=== PATIENT | male | born 1965 | race Caucasian/White ===

== ENCOUNTER 2020-06-06 18:03 | Observation (INO) | payer OTHER ==
[2020-06-06] MEDS ORDERED: MORPHINE SULFATE 4 MG/ML SYRINGE IV STA (18:23)
[2020-06-06 18:38] LABS: Basophils % (A) 1 %; Eosinophils # (A) 0.1 k/uL (0-0.7); Eosinophils % (A) 2 %; HCT 41.3 % (39.0-53.0); HGB 12.5 gm/dL (13.0-17.5); Lymphocytes # (A) 1.4 k/uL (1.0-4.8); Lymphocytes % (A) 23 %; MCH 26.9 pg (25.0-35.0); MCHC 30.3 g/dL (31.0-37.0); MCV 88.8 fL (80.0-100.0); Monocytes # (A) 0.3 k/uL (0-1.0); Monocytes % (A) 4 %; Neutrophils # (A) 4.1 k/uL (1.3-7.7); Neutrophils % (A) 69 %; Platelet Count 117 k/uL (150-450); RBC 4.66 m/uL (4.30-5.90); RDW 14.1 % (11.5-15.5)
[2020-06-06 18:44] LABS: ALT 57 U/L (4-49); AST 33 U/L (17-59); African American GFR (CKD) >90 (>60 ml/min/1.73 sqM); Albumin 4.5 g/dL (3.5-5.0); Alkaline Phosphatase 71 U/L (38-126); Anion Gap 10 mmol/L; Blood Urea Nitrogen 21 mg/dL (9-20); Calcium 9.2 mg/dL (8.4-10.2); Carbon Dioxide 24 mmol/L (22-30); Chloride 104 mmol/L (98-107); Glucose 94 mg/dL (74-99); Lipase 52 U/L (23-300); Magnesium 1.9 mg/dL (1.6-2.3); Non-African American GFR(CKD) 89 (>60 ml/min/1.73 sqM); Potassium 4.5 mmol/L (3.5-5.1); Sodium 138 mmol/L (137-145); Total Bilirubin 0.7 mg/dL (0.2-1.3); Total Protein 7.1 g/dL (6.3-8.2)
--- NOTE | 2020-06-06 19:20 | CT ---
EXAMINATION TYPE: CT chest angio for PE contrast and with 3-D Reconstruction renderings DATE OF EXAM: 06/06/2020 COMPARISON: None HISTORY: Currently being treated for PE. Shortness of breath and chest pain. CT DLP: 274.5 mGycm. Automated exposure control for dose reduction was used. CONTRAST: CT Chest for pulmonary embolism performed with with IV Contrast, patient injected with 100 mL of Isovue 370. FINDINGS: Cardiac pacemaker noted. LUNGS: There are prominent emphysematous changes. No acute pulmonary findings. PLEURAL SPACES: Negative. MEDIASTINUM: There is satisfactory enhancement of the pulmonary artery and its branches, with no CT e vidence for pulmonary embolism. The aorta is unremarkable. Heart and pericardial spaces unremarkable. No mediastinal adenopathy. There is a right upper hilar 1 cm diameter lymph node noted, a nonspecifi c finding. OTHER: No additional significant abnormality is seen. IMPRESSION: 1. Negative for pulmonary embolism. 2. No definitive acute process. 3. Hyperinflation with prominent emphysema noted.
[2020-06-06 19:49] LABS: D-Dimer 0.36 mg/L FEU (<0.60); Partial Thromboplastin Time 24.7 sec (22.0-30.0); Prothrombin Time 10.6 sec (9.0-12.0)
[2020-06-06] MEDS ORDERED: NALOXONE 0.4 MG/ML 1 ML VIAL IV PRN (19:58)
--- NOTE | 2020-06-06 19:58 | ED ---
Chest Pain HPI - General Chief Complaint: Chest Pain Stated Complaint: Chest pain Time Seen by Provider: 06/06/20 18:04 Source: EMS Mode of arrival: EMS Limitations: no limitations - History of Present Illness Initial Comments: Patient is a 55-year-old male past medical history of PE, A. fib, pacemaker placement who presents to the emergency department with reported chest pain since 12 pm. He is being transferred from [place]. States he's been there for 2 days for alcohol use. Patient had sudden onset of chest pain tonight. States it feels similar to when he was diagnosed with a PE. He is currently on anticoagulation and denies any missed doses. Reports to shortness of breath. No fevers, chills or cough. Refused nitro in route as he does not like the way it makes him feel. Denies history of coronary disease. Denies hemoptysis. No abdominal pain. No ripping or tearing sensation to his back. No upper extremity numbness or tingling. No other alleviating, precipitating or modifying factors - Related Data Home Medications Medication Instructions Recorded Confirmed Acetaminophen [Tylenol 8 Hour] 650 mg PO Q4H PRN 06/06/20 06/06/20 Aspirin EC [Ecotrin Low Dose] 81 mg PO DAILY@0600 06/06/20 06/06/20 Calcium/Magnesium/Zinc 2 tab PO TID PRN 06/06/20 06/06/20 [Lnuetnm-Edexydutq-Iiiw Tablet] Chlorpheniramine Maleate 4 mg PO Q4H PRN 06/06/20 06/06/20 [Chlor-Trimeton] Ibuprofen [Motrin] 600 mg PO Q12H PRN 06/06/20 06/06/20 LORazepam [Ativan] 1 - 2 mg PO DIRECTED 06/06/20 06/06/20 Metoprolol Tartrate [Lopressor] 12.5 mg PO BID@0600,1730 06/06/20 06/06/20 Multivitamins, Thera [Multivitamin 1 tab PO DAILY@0600 06/06/20 06/06/20 (formulary)] QUEtiapine FUMARATE [SEROquel] 300 mg PO HS@2200 06/06/20 06/06/20 Thiamine HCl [Vitamin B-1] 100 mg PO DAILY@0600 06/06/20 06/06/20 Tiotropium 2.5 Mcg/Puff [Spiriva 2 puff INHALATION RT-BID@0600,1730 06/06/20 Respimat 2.5 Mcg] Trimethobenzamide [Tigan] 300 mg PO Q6H PRN 06/06/20 06/06/20 Venlafaxine HCl [Effexor XR] 150 mg PO DAILY@0600 06/06/20 06/06/20 clonazePAM [KlonoPIN] 1 mg PO DIRECTED 06/06/20 06/06/20 ondansetron HCL [Zofran] 8 mg PO Q6H PRN 06/06/20 06/06/20 traZODone HCL 50 - 150 mg PO DIRECTED PRN 06/06/20 06/06/20 Previous Rx's Medication Instructions Recorded Apixaban [Eliquis] 5 mg PO BID #60 tab 06/07/20 Omeprazole [PriLOSEC] 40 mg PO AC-BRKFST #14 capsule. 06/07/20 lisinopriL [Zestril] 5 mg PO DAILY #90 tab 06/07/20 Allergies Allergy/AdvReac Type Severity Reaction Status Date / Time No Known Allergies Allergy Verified 06/06/20 20:02 Review of Systems ROS Statement: Those systems with pertinent positive or pertinent negative responses have been documented in the HPI. ROS Other: All systems not noted in ROS Statement are negative. EKG Findings - EKG Comments: EKG Findings:: EKG demonstrates atrial sensed ventricularly paced rhythm. Rate of approximately 111. NE interval 128. QRS 118. QTC 492. Some J-point elevation in V4 and V5. Inverted T-wave in aVL. Past Medical History Additional Past Medical History / Comment(s): Pacemaker August 2017 History of Any Multi-Drug Resistant Organisms: None Reported Past Surgical History: No Surgical Hx Reported Past Psychological History: No Psychological Hx Reported Smoking Status: Current every day smoker Past Alcohol Use History: Abuse, Daily General Exam Limitations: no limitations General appearance: alert, in no apparent distress Head exam: Present: atraumatic, normocephalic, normal inspection Eye exam: Present: normal appearance, PERRL, EOMI. Absent: scleral icterus, conjunctival injection, periorbital swelling ENT exam: Present: normal exam, mucous membranes moist Neck exam: Present: normal inspection. Absent: tenderness, meningismus, lymphad enopathy Respiratory exam: Present: normal lung sounds bilaterally. Absent: respiratory distress, wheezes, rales, rhonchi, stridor Cardiovascular Exam: Present: regular rate, normal rhythm, normal heart sounds. Absent: systolic murmur, diastolic murmur, rubs, gallop, clicks GI/Abdominal exam: Present: soft, normal bowel sounds. Absent: distended, tenderness, guarding, rebound, rigid Extremities exam: Present: normal inspection, full ROM, normal capillary refill. Absent: tenderness, pedal edema, joint swelling, calf tenderness Back exam: Present: normal inspection Neurological exam: Present: alert, oriented X3, CN II-XII intact Psychiatric exam: Present: normal affect, normal mood Skin exam: Present: warm, dry, intact, normal color. Absent: rash Course Vital Signs 06/06/20 06/06/20 18:06 18:44 Pulse Rate 108 H 120 H Respiratory 16 16 Rate Blood Pressure 138/100 140/90 O2 Sat by Pulse 98 95 Oximetry - Reevaluation(s) Reevaluation #1: Spoke with Dr. Daley re: EKG 06/06/20 20:50 Chest Pain MDM - MDM Upon arrival patient is placed in room 5. A thorough history and physical exam is performed. 12-lead EKG is performed which does demonstrate a ventricularly paced rhythm. Patient does have some J-point elevation in V4 and V5. No old EKG to compare to. He is given 4 mg of morphine and laboratory studies were conducted. Laboratory studies are reviewed and the troponin is negative. D- dimer 0.36. Covid not detected. CT of the chest is performed because of his history of PE which does not demonstrate pulmonary embolus and. Did recommend hospitalization for which the patient did agree to. Spoke with Dr. Simeon who agreed to admit the patient. Patient remained in stable condition awaiting a bed Disposition Clinical Impression: Chest pain, Pacemaker, Hx pulmonary embolism Disposition: ADMITTED IP TO THIS HOSP Condition: Serious Is patient prescribed a controlled substance at d/c from ED?: No Decision to Admit Reason: Admit from EC Decision Date: 06/06/20 Decision Time: 19:58
[2020-06-06] MEDS ORDERED: ASPIRIN 325 MG TAB PO STA (20:07)
[2020-06-06] MEDS ORDERED: TRIMETHOBENZAMIDE 300 MG CAP PO PRN (20:45)
[2020-06-06] MEDS ORDERED: LORazepam 2 MG/ML INJ IV PRN ×3 (20:47)
[2020-06-06] MEDS ORDERED: THIAMINE 100 MG/ML 2 ML VIAL IM STA (20:47)
[2020-06-06] MEDS: THIAMINE 100 MG TAB PO SCH (21:15)
[2020-06-06] MEDS ORDERED: QUEtiapine 100 MG TAB PO SCH (22:00)
[2020-06-06] MEDS: MORPHINE SULFATE 4 MG/ML SYRINGE IV PRN (22:13)
[2020-06-07] MEDS: MORPHINE SULFATE 4 MG/ML SYRINGE IV PRN (02:26)
[2020-06-07] MEDS ORDERED: TIOTROPIUM 2.5 MCG INHALER INHALATION SCH (06:00)
[2020-06-07] MEDS ORDERED: THIAMINE 100 MG TAB PO SCH (06:00)
[2020-06-07] MEDS ORDERED: VENLAFAXINE HCL ER 75 MG CAP PO SCH (06:00)
[2020-06-07] MEDS ORDERED: APIXABAN 5 MG TAB PO SCH (06:00)
[2020-06-07] MEDS ORDERED: ASPIRIN 81 MG PO SCH (06:00)
[2020-06-07] MEDS ORDERED: METOPROLOL TARTRATE 12.5 MG TAB PO SCH (06:00)
[2020-06-07 07:49] VITALS: BP 115/71; PULSE 84; RESP 18; TEMP 97.6
[2020-06-07] MEDS ORDERED: NICOTINE 14MG/24HR PATCH TRANSDERM SCH (09:00)
--- NOTE | 2020-06-07 10:29 | P.HPIM ---
History of Present Illness Patient is a 55-year-old male came in with complaints of chest pressure is sensation moderate to severe in nature. Patient pain is constant across the chest nonradiating, no associated shortness of breath lightheadedness or diaphoresis associated with the pain patient the is currently on anticoagulation with Eliquis for pulmonary embolism which was diagnosed about 2 weeks ago and patient told me that he only received a course only for few days and he ran out of the medication. Patient denied any fever chills nausea vomiting. Troponins were negative patient was evaluated by cardiology after obtaining an echocardiogram if echo doesn't show any significant wall motion abnormalities patient probably will be discharged today. Patient had a CT of the chest which showed emphysema without any PE or any pneumonia. Patient chest pain may be musculoskeletal and patient is already on Motrin which will be continued also given him prescription for Prilosec empirically for 14 days. EKG showing by IV pacer rhythm Review of Systems REVIEW OF SYSTEMS: CONSTITUTIONAL: No fever, no malaise, no fatigue. HEENT: No recent visual problems or hearing problems. Denied any sore throat. CARDIOVASCULAR: orthopnea, PND, no palpitations, no syncope. PULMONARY: No shortness of breath, no cough, no hemoptysis. GASTROINTESTINAL: No diarrhea, no nausea, no vomiting, no abdominal pain. NEUROLOGICAL: No headaches, no weakness, no numbness. HEMATOLOGICAL: Denies any bleeding or petechiae. GENITOURINARY: Denies any burning micturition, frequency, or urgency. MUSCULOSKELETAL/RHEUMATOLOGICAL: Denies any joint pain, swelling, or any muscle pain. ENDOCRINE: Denies any polyuria or polydipsia. The rest of the 14-point review of systems is negative. Past Medical History Additional Past Medical History / Comment(s): Pacemaker August 2017 History of Any Multi-Drug Resistant Organisms: None Reported Past Surgical History: No Surgical Hx Reported Past Psychological History: No Psychological Hx Reported Smoking Status: Current every day smoker Past Alcohol Use History: Abuse, Daily Medications and Allergies Home Medications Medication Instructions Recorded Confirmed Type Acetaminophen [Tylenol 8 Hour] 650 mg PO Q4H PRN 06/06/20 06/06/20 History Apixaban [Eliquis] 10 mg PO BID@0600,1730 06/06/20 06/06/20 History Aspirin EC [Ecotrin Low Dose] 81 mg PO DAILY@0600 06/06/20 06/06/20 History Calcium/Magnesium/Zinc 2 tab PO TID PRN 06/06/20 06/06/20 History [Obxgpke-Ozktmwqvs-Dlza Tablet] Chlorpheniramine Maleate 4 mg PO Q4H PRN 06/06/20 06/06/20 History [Chlor-Trimeton] Ibuprofen [Motrin] 600 mg PO Q12H PRN 06/06/20 06/06/20 History LORazepam [Ativan] 1 - 2 mg PO DIRECTED 06/06/20 06/06/20 History Metoprolol Tartrate [Lopressor] 12.5 mg PO BID@0600,1730 06/06/20 06/06/20 History Multivitamins, Thera [Multivitamin 1 tab PO DAILY@0600 06/06/20 06/06/20 History (formulary)] QUEtiapine FUMARATE [SEROquel] 300 mg PO HS@2200 06/06/20 06/06/20 History Thiamine HCl [Vitamin B-1] 100 mg PO DAILY@0600 06/06/20 06/06/20 History Tiotropium 2.5 Mcg/Puff [Spiriva 2 puff INHALATION RT-BID@0600,1730 06/06/20 06/06/20 History Respimat 2.5 Mcg] Trimethobenzamide [Tigan] 300 mg PO Q6H PRN 06/06/20 06/06/20 History Venlafaxine HCl [Effexor XR] 150 mg PO DAILY@0600 06/06/20 06/06/20 History clonazePAM [KlonoPIN] 1 mg PO DIRECTED 06/06/20 06/06/20 History ondansetron HCL [Zofran] 8 mg PO Q6H PRN 06/06/20 06/06/20 History traZODone HCL [TraZODone HCl] 50 - 150 mg PO DIRECTED PRN 06/06/20 06/06/20 History Allergies Allergy/AdvReac Type Severity Reaction Status Date / Time No Known Allergies Allergy Verified 06/06/20 20:02 Physical Exam Vitals: Vital Signs Temp Pulse Pulse Pulse Resp BP BP 06/07/20 07:00 97.6 F 84 18 115/71 06/07/20 02:00 97.5 F L 93 16 02/18/21 20:59 97.6 F 91 20 06/06/20 18:44 120 H 16 140/90 06/06/20 18:06 108 H 16 138/100 BP Pulse Ox 06/07/20 07:00 94 L 06/07/20 02:00 123/79 93 L 06/06/20 20:59 139/83 95 06/06/20 18:44 95 06/06/20 18:06 98 Intake and Output 06/06/20 06/07/20 06/07/20 22:59 06:59 14:59 Other: Voiding Method Toilet Toilet # Voids 1 2 Weight 77.111 kg PHYSICAL EXAMINATION: GENERAL: The patient is alert and oriented x3, not in any acute distress. Well developed, well nourished. HEENT: Pupils are round and equally reacting to light. EOMI. No scleral icterus. No conjunctival pallor. Normocephalic, atraumatic. No pharyngeal erythema. No thyromegaly. CARDIOVASCULAR: S1 and S2 present. No murmurs, rubs, or gallops. PULMONARY: Chest is clear to auscultation, no wheezing or crackles. ABDOMEN: Soft, nontender, nondistended, normoactive bowel sounds. No palpable organomegaly. MUSCULOSKELETAL: No joint swelling or deformity. EXTREMITIES: No cyanosis, clubbing, or pedal edema. NEUROLOGICAL: Gross neurological examination did not reveal any focal deficits. SKIN: No rashes. Results CBC & Chem 7: 06/06/20 18:27 06/06/20 18:27 Labs: Abnormal Lab Results - Last 24 Hours (Table) 06/06/20 06/06/20 Range/Units 18:27 18:27 Hgb 12.5 L (13.0-17.5) gm/dL MCHC 30.3 L (31.0-37.0) g/dL Plt Count 117 L (150-450) k/uL BUN 21 H (9-20) mg/dL ALT 57 H (4-49) U/L Thrombosis Risk Factor Assmnt - Choose All That Apply Each Factor Represents 1 point: Age 41-60 years Each Risk Factor Represents 3 Points: History of DVT/PE Thrombosis Risk Factor Assessment Total Risk Factor Score: 4 Thrombosis Risk Factor Assessment Level: Moderate Risk Assessment and Plan Plan: -Chest pain etiology is not clear. Ruled out acute cord syndromes echocardiac exam is being obtained for further management as per cardiology. Cleared by cardiology patient will be discharged will give him 14 days of empiric Proton inhibitor although patient chest pain doesn't appear to be gastroesophageal reflux disease or peptic ulcer disease can be musculoskeletal or which patient is already on Motrin. Ruled out new PE. Patient had a recent pulmonary embolism patient will be refilled with the prescription for Eliquis -Alcohol abuse history: She and the last drink was 5 days ago are do not expect any withdrawals patient also has minimal tremor at this time -Nicotine abuse history patient states he quit smoking since his admission to [facility] [facility] -Recent pulmonary embolism Possible COPD without any acute exacerbation -Depression She'll be discharged today. Cleared by cardiology
[2020-06-07] MEDS: THIAMINE 100 MG TAB PO SCH (10:32)
--- NOTE | 2020-06-07 11:37 | P.CRDCN ---
History of Present Illness History of present illness: HISTORY OF PRESENTING ILLNESS This is a pleasant 55-year-old male past medical history significant for nonischemic cardiomyopathy status post AICD ([employer]), hypertension, recent diagnosis of PE, chronic nicotine dependence and daily heavy alcohol intake. He does not follow regularly with a sleeve setter lockstitch. He states his defibrillator was placed by Dr. Campos at [facility] in 2018 however he does not follow regularly or have his device interrogated. We have been asked to see in consultation for chest pain. He states he has been experiencing a pain across his upper torso since yesterday afternoon. The pain is mildly pleuritic in nature. It does not get worse with activity or ambulation. He states he was recently diagnosed with a PE but has not been taking his anti-coagulation as prescribed. He states he quit drinking alcohol 5 days ago he is currently a resident at [facility] [facility]. DIAGNOSTICS EKG reveals BiV paced. Telemetry tracings indicate paced rhythm. CTA is negative for pulmonary embolism with hyperinflation noted. Laboratory reviewed, WBC 6, hemoglobin 12.5, platelets 117, d-dimer 0.36, sodium 138, potassium 4.5, creatinine 0.96, magnesium 1.9, cardiac enzymes negative 3. Current cardiac medications include metoprolol 12.5 mg twice a day and aspirin 81 mg daily. REVIEW OF SYSTEMS At the time of my exam: CONSTITUTIONAL: Denies fever or chills. CARDIOVASCULAR: Denies chest pain, shortness of breath, orthopnea, PND or palpitations. RESPIRATORY: Denies cough. GASTROINTESTINAL: Denies abdominal pain, diarrhea, constipation, nausea or vomiting. MUSCULOSKELETAL: Denies myalgias. NEUROLOGIC: Denies numbness, tingling, headacbe or weakness. ENDOCRINE: Denies fatigue, weight change, polydipsia or polyurina. GENITOURINARY: Denies burning, hematuria or urgency with micturation. HEMATOLOGIC: Denies history of anemia or bleeding. PHYSICAL EXAMINATION Blood pressure 115/71 heart rate 84 afebrile and maintaining oxygen saturation on room air. CONSTITUTIONAL: No apparent distress. HEENT: Head is normocephalic. Pupils are equal, round. Sclerae anicteric. Mucous membranes of the mouth are moist. No JVD. No carotid bruit. CHEST EXAMINATION: Lungs are clear to auscultation. No chest wall tenderness is noted on palpation or with deep breathing. HEART EXAMINATION: Regular rate and rhythm. S1, S2 heard. No murmurs, gallops or rub. ABDOMEN: Soft, nontender. Positive bowel sounds. EXTREMITIES: 2+ peripheral pulses, no lower extremity edema and no calf tenderness. NEUROLOGIC EXAMINATION: Patient is awake, alert and oriented x3. ASSESSMENT Chest pain, pleuritic Non-ischemic cardiomyopathy s/p AICD Hypertension Recent diagnosis of PE however CT yesterday was negative Daily alcohol intake, currently in rehab Chronic nicotine dependence PLAN An acute coronary event has been ruled out. Interrogate his device. Obtain 2D echocardiogram and doppler study to assess cardiac structure and function. Check TSH. Continue lopressor as previously ordered. Initiate lisinopril 5 mg daily. Recommend ongoing alcohol cessation and consider tobacco cessation. Thank you kindly for this consultation. Nurse Practitioner note has been reviewed, I agree with a documented findings and plan of care. Patient was seen and examined. Past Medical History Additional Past Medical History / Comment(s): Pacemaker August 2017 History of Any Multi-Drug Resistant Organisms: None Reported Past Surgical History: No Surgical Hx Reported Past Psychological History: No Psychological Hx Reported Smoking Status: Current every day smoker Past Alcohol Use History: Abuse, Daily Medications and Allergies Home Medications Medication Instructions Recorded Confirmed Type Acetaminophen [Tylenol 8 Hour] 650 mg PO Q4H PRN 06/06/20 06/06/20 History Aspirin EC [Ecotrin Low Dose] 81 mg PO DAILY@0600 06/06/20 06/06/20 History Calcium/Magnesium/Zinc 2 tab PO TID PRN 06/06/20 06/06/20 History [Wczqube-Xdeujcjun-Mjoa Tablet] Chlorpheniramine Maleate 4 mg PO Q4H PRN 06/06/20 06/06/20 History [Chlor-Trimeton] Ibuprofen [Motrin] 600 mg PO Q12H PRN 06/06/20 06/06/20 History LORazepam [Ativan] 1 - 2 mg PO DIRECTED 06/06/20 06/06/20 History Metoprolol Tartrate [Lopressor] 12.5 mg PO BID@0600,1730 06/06/20 06/06/20 History Multivitamins, Thera [Multivitamin 1 tab PO DAILY@0600 06/06/20 06/06/20 History (formulary)] QUEtiapine FUMARATE [SEROquel] 300 mg PO HS@2200 02/18/21 02/18/21 History Thiamine HCl [Vitamin B-1] 100 mg PO DAILY@0600 06/06/20 06/06/20 History Tiotropium 2.5 Mcg/Puff [Spiriva 2 puff INHALATION RT-BID@0600,1730 06/06/20 06/06/20 History Respimat 2.5 Mcg] Trimethobenzamide [Tigan] 300 mg PO Q6H PRN 06/06/20 06/06/20 History Venlafaxine HCl [Effexor XR] 150 mg PO DAILY@0600 06/06/20 06/06/20 History clonazePAM [KlonoPIN] 1 mg PO DIRECTED 06/06/20 06/06/20 History ondansetron HCL [Zofran] 8 mg PO Q6H PRN 06/06/20 06/06/20 History traZODone HCL 50 - 150 mg PO DIRECTED PRN 06/06/20 06/06/20 History Apixaban [Eliquis] 5 mg PO BID #60 tab 06/07/20 Rx Omeprazole [PriLOSEC] 40 mg PO AC-BRKFST #14 capsule. 06/07/20 Rx Allergies Allergy/AdvReac Type Severity Reaction Status Date / Time No Known Allergies Allergy Verified 06/06/20 20:02 Physical Exam Vitals: Vital Signs Temp Pulse Pulse Pulse Resp BP BP 06/07/20 07:00 97.6 F 84 18 115/71 06/07/20 02:00 97.5 F L 93 16 06/06/20 20:59 97.6 F 91 20 06/06/20 18:44 120 H 16 140/90 06/06/20 18:06 108 H 16 138/100 BP Pulse Ox 06/07/20 07:00 94 L 06/07/20 02:00 123/79 93 L 06/06/20 20:59 139/83 95 06/06/20 18:44 95 06/06/20 18:06 98 Intake and Output 06/06/20 06/07/20 06/07/20 22:59 06:59 14:59 Other: Voiding Method Toilet Toilet # Voids 1 2 Weight 77.111 kg Results 06/06/20 18:27 06/06/20 18:27 Cardiac Enzymes 06/06/20 06/06/20 06/06/20 Range/Units 18:27 18:27 22:28 AST 33 (17-59) U/L Troponin I <0.012 <0.012 (0.000-0.034) ng/mL 06/07/20 Range/Units 01:49 AST (17-59) U/L Troponin I <0.012 (0.000-0.034) ng/mL Coagulation 06/06/20 Range/Units 19:19 PT 10.6 (9.0-12.0) sec APTT 24.7 (22.0-30.0) sec CBC 06/06/20 Range/Units 18:27 WBC 6.0 (3.8-10.6) k/uL RBC 4.66 (4.30-5.90) m/uL Hgb 12.5 L (13.0-17.5) gm/dL Hct 41.3 (39.0-53.0) % Plt Count 117 L (150-450) k/uL Comprehensive Metabolic Panel 06/06/20 Range/Units 18:27 Sodium 138 (137-145) mmol/L Potassium 4.5 (3.5-5.1) mmol/L Chloride 104 (98-107) mmol/L Carbon Dioxide 24 (22-30) mmol/L BUN 21 H (9-20) mg/dL Creatinine 0.96 (0.66-1.25) mg/dL Glucose 94 (74-99) mg/dL Calcium 9.2 (8.4-10.2) mg/dL AST 33 (17-59) U/L ALT 57 H (4-49) U/L Alkaline Phosphatase 71 (38-126) U/L Total Protein 7.1 (6.3-8.2) g/dL Albumin 4.5 (3.5-5.0) g/dL Current Medications Generic Name Dose Route Start Last Admin Trade Name Freq PRN Reason Stop Dose Admin Apixaban 10 mg 06/07/20 06:00 Apixaban 5 Mg Tab PO BID@0600,1730 [facility] Aspirin 81 mg 06/07/20 06:00 Aspirin 81 Mg PO DAILY@0600 [facility] Lorazepam 1 mg 06/06/20 20:47 06/07/20 03:36 Lorazepam 2 Mg/Ml Inj IV 1 mg Q2HR PRN Administration CIWA 8 or 9 Lorazepam 1 mg 06/06/20 20:47 06/06/20 21:46 Lorazepam 2 Mg/Ml Inj IV 1 mg Q1HR PRN Administration CIWA 10 to 15 Lorazepam 2 mg 06/06/20 20:47 Lorazepam 2 Mg/Ml Inj IV 06/08/20 20:47 Q10M PRN CIWA 16 or higher Metoprolol Tartrate 12.5 mg 06/07/20 06:00 Metoprolol Tartrate 12.5 Mg Tab PO BID@0600,1730 [facility] Morphine Sulfate 4 mg 06/06/20 19:58 06/07/20 02:26 Morphine Sulfate 4 Mg/Ml Syringe IV 4 mg Q4HR PRN Administration Severe Pain Naloxone HCl 0.2 mg 06/06/20 19:58 Naloxone 0.4 Mg/Ml 1 Ml Vial IV Q2M PRN Opioid Reversal Nicotine 1 patch 06/07/20 09:00 Nicotine 14mg/24hr Patch TRANSDERM DAILY [facility]TT[facility] Quetiapine Fumarate 300 mg 06/06/20 22:00 06/06/20 21:36 Quetiapine 100 Mg Tab PO 300 mg HS@2200 [facility] Administration Thiamine HCl 100 mg 06/06/20 17:30 06/06/20 21:15 Thiamine 100 Mg Tab PO Not Given BID-W/MEALS GRETTA Tiotropium [place] 2 puff 06/07/20 06:00 06/07/20 08:20 Tiotropium 2.5 Mcg Inhaler INHALATION 2 puff RT-BID@0600,1730 GRETTA Administration Trimethobenzamide HCl 300 mg 06/06/20 20:45 Trimethobenzamide 300 Mg Cap PO Q6H PRN Nausea And Vomiting Venlafaxine HCl 150 mg 06/07/20 06:00 Venlafaxine Hcl Er 75 Mg Cap PO DAILY@0600 [facility] Intake and Output 06/06/20 06/07/20 06/07/20 22:59 06:59 14:59 Other: Voiding Method Toilet Toilet # Voids 1 2 Weight 77.111 kg 06/06/20 18:27 06/06/20 18:27
[2020-06-07] MEDS ORDERED: lisinopriL 5 MG TAB PO SCH (11:45)
--- NOTE | 2020-06-07 12:00 | ECHOF ---
Referral Reason:cp MEASUREMENTS -------- HEIGHT: 180.3 cm WEIGHT: 77.1 kg BP: 115/71 RVIDd: 3.6 cm (< 3.3) IVSd: 0.9 cm (0.6 - 1.1) LVIDd: 4.4 cm (3.9 - 5.3) LVPWd: 1.1 cm (0.6 - 1.1) IVSs: 1.1 cm LVIDs: 3.5 cm LVPWs: 1.5 cm LAESV Index (A-L): 18.43 ml/m Ao Diam: 2.8 cm (2.0 - 3.7) AV Cusp: 2.0 cm (1.5 - 2.6) MV EXCURSION: 22.775 mm (> 18.000) MV EF SLOPE: 101 mm/s (70 - 150) EPSS: 0.6 cm MV E Chandra: 0.65 m/s MV DecT: 185 ms MV A Chandra: 0.53 m/s MV E/A Ratio: 1.21 RAP: 5.00 mmHg RVSP: 24.78 mmHg FINDINGS -------- This was a technically difficult study with suboptimal views. The left ventricular size is normal. Left ventricular wall thickness is normal. Overall left vent ricular systolic function is mildly impaired with, an EF between 45 - 50 %. Septal wall motion is d elayed, and consistent with conduction delay/bundle branch block. The right ventricle is mildly enlarged. Normal LA size by volume 22+/-6 ml/m2. The right atrium was not well visualized. Electronic pacemaker lead seen in the right atrial cavity . 5.0mg of Lumason was utilized for enhancement of images Interatrial and interventricular septum intact. There is no evidence of aortic regurgitation. There is no evidence of aortic stenosis. No mitral regurgitation. Mild tricuspid regurgitation present. There is no evidence of pulmonary hypertension. The right v entricular systolic pressure, as measured by Doppler, is 24.78mmHg. The pulmonic valve was not well visualized. There is no pulmonic regurgitation present. The aortic root size is normal. IVC Not well visulized. There is no pericardial effusion. CONCLUSIONS -------- 1. The left ventricular size is normal. 2. Left ventricular wall thickness is normal. 3. Overall left ventricular systolic function is mildly impaired with, an EF between 45 - 50 %. 4. The right ventricle is mildly enlarged. 5. Mild tricuspid regurgitation present. LOCOMOTIVE PIPE FITTER: Gail Giraldo RDCS
[2020-06-07 15:12] LABS: Basophils # (A) 0.04 X 10*3/uL (0.00-0.10); Basophils % (A) 0.6 %; Eosinophils # (A) 0.17 X 10*3/uL (0.04-0.35); Eosinophils % (A) 2.6 %; HCT 40.9 % (39.6-50.0); HGB 13.4 g/dL (13.0-17.0); Lymphocytes % (A) 26.4 %; MCH 29.3 pg (27.0-32.0); MCHC 32.8 g/dL (32.0-37.0); MCV 89.5 fL (80.0-97.0); Mean Platelet Volume 10.1 fL (9.5-12.2); Monocytes # (A) 0.48 X 10*3/uL (0.20-1.00); Monocytes % (A) 7.5 %; Neutrophils # (A) 4.02 X 10*3/uL (1.80-7.70); Neutrophils % (A) 62.4 %; Platelet Count 228 X 10*3/uL (140-440); RBC 4.57 X 10*6/uL (4.40-5.60); RDW 13.6 % (11.5-14.5); WBC 6.44 X 10*3/uL (4.50-10.00)
[2020-06-07 15:42] LABS: African American GFR (CKD) 97.8 (60.0-200.0); Anion Gap 6.7 mmol/L (4.00-12.00); Calcium 8.8 mg/dL (8.7-10.3); Carbon Dioxide 26.3 mmol/L (21.6-31.8); Non-African American GFR(CKD) 84.4 (60.0-200.0); Potassium 4.3 mmol/L (3.5-5.5)
== END 2020-06-07 14:27 | disposition home or self-care (01) ==
LOC: EC 18:03 → 6NMEDSUR 19:58
PROVIDERS: ADMIT Internal Medicine; ATTEND Internal Medicine
DX: R07.89 Other chest pain (principal); R06.02 Shortness of breath; R07.81 Pleurodynia; Z86.711 Personal history of pulmonary embolism; I48.91 Unspecified atrial fibrillation; F10.10 Alcohol abuse, uncomplicated; F32.9 Major depressive disorder, single episode, unspecified; T45.516A Underdosing of anticoagulants, initial encounter; I11.9 Hypertensive heart disease without heart failure; I43 Cardiomyopathy in diseases classified elsewhere; F17.200 Nicotine dependence, unspecified, uncomplicated; Z79.899 Other long term (current) drug therapy; Z79.1 Long term (current) use of non-steroidal anti-inflammatories (NSAID); Z79.82 Long term (current) use of aspirin; Z79.01 Long term (current) use of anticoagulants; Z95.810 Presence of automatic (implantable) cardiac defibrillator; Z86.718 Personal history of other venous thrombosis and embolism; Z20.822 Contact with and (suspected) exposure to COVID-19
CPT/HCPCS: 96376 ×2; 96375; 96374; 99285; 36415; 94640; 93005; 85379; 80053; 80048; 84443; 83690; 83735; 84484 ×2; 85025 ×2; 85610; 85730; 87635; 71275; G0378 ×2; C8929; S4990; J2060 ×2; J2270 ×2; Q9950; Q9967; 93306